=== PATIENT | female | born 1940 | race Caucasian/White ===

== ENCOUNTER → 2020-03-06 | Outpatient (CLI) | payer OTHER ==
[~2020-03-06] VITALS: Ht 157.5 cm; Wt 62.6 kg
[~2020-03-06] MED LIST: ASA81BEC PO; CELEXA 10 MG TA10 M1 PO; CELEXA 20 MG TA20 MG PO; FISH OIL 1,0001 EAC9 PO; FLAX SEED OIL1000 MG PO; FOLIC ACID20 MG PO; HYDROCHLOROTH12.5 M1 PO; NABUMETONE 500500 M2 PO; PROCARDIA XL30 MG PO; XANAX2 MG PO; ZOCOR 20 MG TAB20 M1 PO
--- NOTE | 2020-03-07 20:22 | P ---
[facility] Dennis Dunaway [facility] [place] [address] PROCEDURE REPORT Name: ROHIT MOYER Room #: REG [facility]#: [id number] Admission: 03/06/20 Attend Phys: Nazario Forbes MD Discharge: Date of : 38 Report #: [id number] THIS REPORT FOR: cc: VIKTORIYA JACOBSEN John A. MD ~ CC: Nazario Jacobsen MD DATE OF SERVICE: 03/06/2020 OUTPATIENT COLONOSCOPY REPORT BRIEF HISTORY: The patient is an 80-year-old woman for average risk screening colonoscopy. Her last colonoscopy was 13 years ago. PREOPERATIVE DIAGNOSIS: Average risk screening colonoscopy. POSTOPERATIVE DIAGNOSES: 1. Colon polyps x 2. 2. Focal diverticulitis, 25 cm. 3. Moderately severe left-sided diverticulosis coli with few scattered proximal colon diverticula. MEDICATIONS: Deep sedation with propofol per anesthesia. SPECIMENS: 1. Proximal ascending colon polyp. 2. Colon polyp at 30 cm. ESTIMATED BLOOD LOSS: 3 mL. PROCEDURE: Colonoscopy to cecum and terminal ileum with snare polypectomy and biopsy. FINDINGS: Prior to propofol sedation, procedure of colonoscopy discussed with the patient as well as potential risks, benefits and complications. She indicates she understands and desires to proceed. DESCRIPTION OF PROCEDURE: With the patient in left lateral decubitus position, digital examination was completed, which revealed no abnormalities. Subsequently, the Olympus video colonoscope was introduced into the rectum, advanced under direct vision to the cecum. We initially attempted procedure with an adult colonoscope and could not navigate the sigmoid colon as it was [facility] [address] [place] [address] PROCEDURE REPORT Name: ROHIT MOYER Room #: REG [facility]#: [id number] Admission: 03/06/20 Attend Phys: Nazario Forbes MD Discharge: Date of : 38 Report #: [id number] very tortuous and redundant and relatively fixed due to diverticular disease. We then switched to a pediatric colonoscope and with only mild difficulty, we were able to advance the scope through the sigmoid colon into the proximal colon. Cecum was identified by the ileocecal valve and the appendiceal orifice. I was able to visualize the distal segment of the terminal ileum, which was inspected and noted to be unremarkable. At that point, the scope was slowly withdrawn and careful circumferential views were obtained. Upon slow withdrawal of the scope, the prep was good after cleaning up a small amount of residual material scattered throughout the colon. The mucosa within normal limits, normal vascular pattern, normal light reflex. As we withdrew the scope, she was noted to have normal colonic mucosa throughout. As we withdrew the scope, an occasional diverticulum was seen in the proximal colon without evidence of diverticulitis. In the left colon, there was moderately severe diverticular disease as noted. At 30 cm, a diminutive polyp was seen and removed with biopsy forceps on the edge of a fold. At about 25 cm, there was one single diverticulum with purulent material consistent with focal diverticulitis. No other inflammatory changes were seen. Scope was withdrawn in the rectum, no abnormalities were seen. Upon retroflexion, no abnormalities were seen. Scope was withdrawn. The patient tolerated the procedure well. CONDITION OF THE PATIENT UPON DISCHARGE: Following procedure, the patient drowsy, aroused, conversant and will be discharged home when fully ambulatory. INSTRUCTIONS TO THE PATIENT AND FAMILY AT THE TIME OF DISCHARGE: We will follow up on the path of the polyps. However, at this point in life, she is not likely to benefit from continued routine surveillance colonoscopy. However, some problems should arise, colonoscopy could be entertained at that time. In addition, since she does have a focal diverticulitis and she has an allergy to LEVOFLOXACIN, we will have her use Augmentin 875 mg twice daily for 7 days. She will return to the care of Dr. Viktoriya Jacobsen, return to see me as needed. Last colonoscopy was 13 years ago. Withdrawal time from the cecum was 19 minutes 11 seconds. <ELECTRONICALLY SIGNED> By: aNzario Forbes MD 03/07/202021 0909 [id number] Nazario Forbes MD /nt
--- NOTE | 2020-03-08 17:07 | PATH ---
[facility] [address] [place] [address] PATHOLOGY RPT PROCEDURE Name: COMFORTROHIT Rinaldi Room #: REG [facility].#: [id number] Admission: 03/06/20 Date of : 38 Discharge: Report #: [id number] Path Case #: [id number] [facility] Accession Number: [id number] . 01 Material submitted: . PART A: colon - POLYP AT PROXIMAL ASCENDING COLON. Modifiers: proximal, ascending PART B: colon - POLYP AT 30CM . 01 Clinical history: . Pre-op diagnosis: History of polyps Post-op diagnosis: Diverticulosis, diverticulitis, colon polyp Blood in stool, Covid . 02 Diagnosis: A. Polyp, at proximal ascending colon, endoscopic biopsy: - Hyperplastic polyp. - Negative for dysplasia. . B. Polyp, at 30 cm, endoscopic biopsy: - Tubular adenoma. - Negative for high-grade dysplasia. (IUV:pit 03/08/2020) QTP 03/08/2020 1222 Local . 02 Electronically signed: . Laure Amaya MD, Pathologist NPI- [id number] . 01 Gross description: . A. The specimen is received in formalin, labeled "Rohit Moyer, polyp at proximal ascending colon". Received is a segment of pale marquez soft tissue measuring 1.5 cm in maximum dimensions. The specimen is submitted entirely in cassette A1. . B. The specimen is received in formalin, labeled "Rohit Moyer, polyp at 30 cm". Received is a segment of pale marquez soft tissue measuring 0.4 cm in maximum dimensions. The specimen is submitted entirely in cassette B1. (CAA; 03/06/2020) QAC/QAC 03/06/2020 1728 Local . 02 Pathologist provided ICD-10: K63.5, D12.6 . 02 CPT . 298412, 570710 Specimen Comment: A courtesy copy of this report has been sent to [phone] [address] PATHOLOGY RPT PROCEDURE Name: ROHIT MOYER Room #: REG [facility] BiancaReny#: [id number] Admission: 03/06/20 Date of : 38 Discharge: Report #: [id number] Path Case #: [id number] Specimen Comment: 1331, Specimen Comment: Report sent to ,DR DEL RIO / DR STALEY Performed at: [address] [facility], [place], [place] [id number] MD Bob Phillip MD Phone: [phone] Performed at: [address] [id number] MD Laure Amaya MD Phone: [phone]
== END | disposition home or self-care (01) ==
LOC: GI 02-21 09:07
PROVIDERS: ATTEND Specialist
DX: Z12.11 Encounter for screening for malignant neoplasm of colon (principal); D12.5 Benign neoplasm of sigmoid colon; K57.30 Diverticulosis of large intestine without perforation or abscess without bleeding; I10 Essential (primary) hypertension; E78.5 Hyperlipidemia, unspecified; M19.90 Unspecified osteoarthritis, unspecified site; Z98.890 Other specified postprocedural states; Z11.59 Encounter for screening for other viral diseases; Z79.899 Other long term (current) drug therapy; Z90.710 Acquired absence of both cervix and uterus; Z88.8 Allergy status to other drugs, medicaments and biological substances
CPT/HCPCS: 62110; 62900